=== PATIENT | male | born 1940 | race Caucasian/White ===

== ENCOUNTER 2019-05-09 09:43 | Day surgery (SDC) | payer MEDICARE, OTHER, SELFPAY ==
[2019-05-07 10:45] VITALS: BMI 28.2
[2019-05-07 10:56] VITALS: BMI 28.2
--- NOTE | 2019-05-09 10:04 | XRR_ITS ---
PROCEDURE INFORMATION: Exam: XR Chest, 1 View Exam date and time: 05/09/2019 10:38 AM Age: 79 years old Clinical indication: Device placement; Other: Generator exchange; Prior surgery; Surgery date: Post-operative (0-2 days) TECHNIQUE: Imaging protocol: XR of the chest Views: 1 view. COMPARISON: CR Chest 1 [place] [id number] 03/15/2013 1:32 PM FINDINGS: Tubes, catheters and devices: AICD. Lungs: Hyperinflation and mild interstitial prominence. Pleural space: No pneumothorax or pleural effusion. Heart/Mediastinum: Cardiac silhouette upper limits of normal in size. Vasculature: Ectasia of the thoracic aorta. Bones/joints: Degenerative change and mild scoliosis. XR/XR chest 1V portable [id number] IMPRESSION: No postprocedural complication in the setting of AICD placement.
[2019-05-09 10:11] VITALS: BP 122/70; PULSE 77; RESP 18; TEMP 36.6
[2019-05-09] MEDS: sodium chloride 0.9% 1,000 ML 30 ML IV (10:17)
--- NOTE | 2019-05-09 10:24 | ANES.PREANES ---
Pre-Anesthetic Assessment Pre-Anesthetic Assessment: Height/Weight: Height 1.83 m Weight 94.347 kg Temp Pulse Resp BP 98 F 77 18 122/70 05/09/19 10:11 05/09/19 10:11 05/09/19 10:11 05/09/19 10:11 Proposed Procedure: Operation Date: 05/09/19 11:15 Proposed Procedures p Defibillator Generator Exchange(Not Applicable) - Cole Chavez MD Social: Social History: No alcohol and No tobacco Exam: Pre-Anes Outpt Exam: alert, oriented x 3, clear to auscultation bilaterally and regular rate & rhythm Pulmonary: Pulmonary: None reported CV/HEM: CV/HEM: CHF : : None reported Hepatic: Hepatic: None reported GI: GI: None reported Metabolic: Metabolic: DM Musc/skel: Musc/skel: None reported Neuropsych: Neuropsych: None reported Anesthetic Plan: ASA status: IV Anesthesia: MAC Risk of > 500 ml blood loss (7ml/kg in children): No Other Pertinent Information: \npo since midnight Meds/Allergies Current Medications: Current Medications Generic Name Dose Route Start Last Admin Trade Name Freq PRN Reason Stop Dose Admin Sodium Chloride 1,000 mls @ 30 ml s/hr 05/09/19 07:30 05/09/19 10:17 Sodium Chloride 0.9% IV 05/10/19 07:29 30 mls/hr .Q24H YOVANY Administration Data Anesthesia Cardiac Studies: No Data to Display
[2019-05-09 10:26] LABS: Glucose Point of Care 297 mg/dL (70-110)
[2019-05-09] MEDS: insulin regular-human 100 units/1 mL 5 UNIT IVP (10:49)
--- NOTE | 2019-05-09 12:36 | PM.OPSURHP ---
Providers/Chief Complaint Admitting Physician: Kathy Primary Care Provider: Cj Osorio DO Chief Complaint: Cardiomyopathy History of Present Illness Rubén Zaldivar is a very pleasant 79 year old male presents today for planned pacing defibrillator exchange. His current device is been present for about 10 years and has never been required to deliver a shock. This device is [employer] and was placed in [place]. We have plans to replace the generator with a [employer] device. This is been carefully discussed with Mr. Zaldivar's and his family and they are in agreement. Review of Systems General: Reports: 10 or more systems reviewed and unremarkable except in HPI and below Const: Denies: fever, chills or change in appetite Card: Reports: shortness of breath on exertion; Denies: chest pain Resp: Reports: shortness of breath (With exertion) Neuro: Denies: changes in sensation or confusion Psych: Denies: anxiety or depression Medications/Allergies Home Medications Medication Instructions Recorded Confirmed Last Taken Type amlodipine 5 mg PO DAILY 05/07/19 05/09/19 05/09/19 07:30 History atorvastatin 10 mg PO DAILY 05/07/19 05/09/19 05/08/19 History 10 digoxin 125 mcg PO DAILY 05/07/19 05/09/19 05/08/19 History 125 finasteride 5 mg PO DAILY 05/07/19 05/09/19 05/09/19 History 5 mg gabapentin 400 mg PO DAILY 05/07/19 05/09/19 05/08/19 History 400 mg irbesartan 300 mg PO DAILY 05/07/19 05/09/19 05/08/19 History 300 mg levothyroxine 25 mcg PO DAILY 05/07/19 05/09/19 05/08/19 History 25 mcg metformin 500 mg PO DAILY 05/07/19 05/09/19 05/08/19 History 500 mg tamsulosin 0.4 mg PO DAILY 05/07/19 05/09/19 05/09/19 History 0.4MG Allergies Allergy/AdvReac Type Severity Reaction Status Date / Time No Known Allergies Allergy Verified 05/07/19 10:47 PFSH PFSH: Statuses (acute, chronic, etc) shown below reflect problem list status as previously entered and may not be historically accurate Medical History (Updated 05/09/19 @ 12:40 by Cole Chavez MD) Cardiomyopathy (Acute) Left bundle branch block (Acute) Surgical History (Updated 05/09/19 @ 12:40 by Cole Chavez MD) History of cardiac defibrillator placement (Acute) Social History (Updated 05/09/19 @ 12:42 by Cole Chavez MD) Smoking and tobacco status: former smoker Quit status (tobacco): has quit using tobacco Second hand smoke exposure: No Alcohol intake: never Substance/Drug Use: never Lives independently: Yes Household members: spouse Housing: House Marital status: Current occupational status: retired Current gender identity: Male Vital Signs Vitals Signs: Last Vital Signs Temp 98 F 05/09/19 10:11 Pulse 77 05/09/19 10:11 Resp 18 05/09/19 10:11 BP 122/70 05/09/19 10:11 Physical Exam Narrative: EXAM NARRATIVE: Very pleasant 78-year-old gentleman with a [employer] defibrillator in place at end of service. Patient presents today for planned defibrillator generator exchange. HENMT: COMMON NORMALS: normocephalic Neck/C-Spine: COMMON NORMALS: no lymphadenopathy and no carotid bruits Chest: COMMONS NORMALS: palpation of chest normal Resp: COMMON NORMALS: normal respiratory effort and no retractions EFFORT & INSPECTION: No respiratory distress AUSCULTATION: clear to auscultation bilaterally Cardio: COMMON NORMALS: regular rate, regular rhythm and S1 normal heart sound RATE: regular rate Extremity: COMMON NORMALS: normal to inspection, full ROM and no pedal edema GENERAL: Yes normal exam except as noted Neuro: COMMON NORMALS: oriented x3, moves all extremities, no focal motor deficits and no sensory deficits noted SENSORIUM/ORIENTATION: Yes alert, Yes oriented to person and Yes oriented to place Psych: COMMON NORMALS: mental status grossly normal, cooperative, affect normal and speech normal APPEARANCE: Yes grossly normal and Yes well kempt A&P Assessment and plan (1) History of cardiac defibrillator placement: [employer] pacing defibrillator generator end of service. We will plan for defibrillator generator exchange with a [employer] device. This was carefully discussed with Mr. Zaldivar and his family. They are in agreement. Details and risks of the procedure were carefully and frankly discussed. Risks reviewed include the possibility of , stroke, heart attack, major bleeding, infection, pneumonia, pneumothorax requiring chest tube, injury to the leads requiring replacement or revision, organ failure, failure to benefit, prolonged hospital stay, pain after the procedure, need for further procedures, inability to complete the procedure, and possible need for long-term followup. All questions were answered. Appropriate consents have been provided for review and signature. Status: Acute Code(s): Z95.810 - Presence of automatic (implantable) cardiac defibrillator Coding Level of Care Code Acute Personnel Technician for [facility] Fwd Diagnoses History of cardiac defibrillator placement Z95.810
[2019-05-09 12:57] LABS: Glucose Point of Care 212 mg/dL (70-110)
[2019-05-09] MEDS: ceFAZolin 1,000 mg SDV 1000 MG IRRIGATION (13:19)
[2019-05-09] MEDS: lidocaine 1% INJ 20 mL INJECTION (13:19)
--- NOTE | 2019-05-09 14:23 | P.OP_ITS ---
Operative Report Post-Operative Note: Date of procedure: 05/09/19 Preop Diagnosis: Defibrillator generator at end of service Post-op diagnosis: same Procedure Done: AICD generator exchange Implants: AICD generator: [employer] Model number [id number] Serial number [id number] Specimens removed/disposition: Given to [employer] representative phlebotomy services Surgeon: Cole Chavez Anesthesia: MAC (10 cc 1% lidocaine infiltrated locally) Estimated blood loss (mL): 10 IV fluids (mL): 350 Complications: None Condition: stable Disposition: same day Operative Report: Brief History: Pleasant 79-year-old gentleman with a [employer] defibrillator generator at end of service. Guest Services Director requested exchange. We will plan to exchange for a [employer] device. Rationale was carefully discussed with patient and family. They are in agreement. Details the risk of surgery were carefully discussed. Procedure: Patient was appropriately positioned and sterilely prepped and draped. IV consicious sedat ion was given with anesthesia monitoring. 1% lidocaine was infiltrated through the prior insertion incision site. # 15 scalpel blade was used to incise the skin down to subcutaneous layer. Subsequently, using sharp and blunt dissection the pseudocapsule to the old generator was reached and opened with a scalpel blade. This area was then enhanced utilizing Metzenbaum scissors with care taken not to injure the pacing leads. Once the pocket was adequate opened, hemostats were utilized to deliver the old generator. Set screws were released and the leads were removed and inserted properly into the new generator with set screws then secured. The old generator was removed from the field. The incision was irrigated with antibiotic solution. Hemostasis was confirmed. The new generator was placed back into the old subcutaneous pocket. The wound was then closed in 2 layers of 3-0 Vicryl suture. Skin was closed in a subcuticular manner with 4-0 undyed Vicryl suture. A 2 layer pressure dressing was then applied. The entire system was interrogated and appropriate parameters obtained. Patient tolerated procedure well and was taken to the recovery room in stable condition. I did auto club travel counselor with the family at the completion of the procedure. Coding Level of Care Code Acute Drying Tunnel Operator for [facility] Guardado
[2019-05-09 14:26] VITALS: BP 112/54; O2SAT 93
[2019-05-09 14:45] LABS: Basophils # 0.1 10^3/uL (0.0-0.1); Basophils % 0.6 %; Eosinophils # 0.4 10^3/uL (0.0-0.8); Hematocrit 39.6 % (42.0-52.0); Lymphocytes # 1.6 10^3/uL (0.8-4.8); Mean Corpuscular HGB Conc 32.8 g/dL (30.0-36.0); Mean Corpuscular Hemoglobin 31.6 pg (28.0-34.0); Mean Corpuscular Volume 96.1 fL (80-94); Mean Platelet Volume 11.8 fL (7.4-10.4); Monocytes # 0.9 10^3/uL (0.2-0.9); Monocytes % 9.2 %; Neutrophils # 6.9 10^3/uL (1.8-7.7); Neutrophils % 69.8 %; Nucleated Red Blood Cells % 0 %; Platelet Count 296 10^3/cmm (130-400); Red Blood Count 4.12 10^6/uL (4.1-5.3); Red Cell Distribution Width 12.6 % (12.1-15.1); White Blood Count 9.9 10^3/uL (4.0-10.0)
[2019-05-09 14:54] LABS: INR 0.96 (0.8-1.2)
[2019-05-09 15:22] LABS: Add Urine Microscopic? YES; Bilirubin Urine Neg (NEGATIVE); Blood Urine Neg (Negative); Glucose Urine UA 4+ (Normal); Ketones Urine Negative (Negative); Nitrate Urine Negative (Negative); Protein Urine Trace (Negative); Specific Gravity, Urine 1.015 (1.005-1.030); Urine Appearance Clear (CLEAR); Urine Color Yellow (Yellow); Urobilinogen Urine 1 mg/dL (Negative)
[2019-05-09 15:52] LABS: Add Urine Culture? No; Bacteria Urine TRACE; Mucus Urine TRACE; RBC Urine 0-4 /hpf (0-2); Squamous Epithelial Cell Urine 0-4 (0-5)
[2019-05-09 23:25] LABS: Anion Gap 16.6 (5-19); Blood Urea Nitrogen 18 mg/dL (8-23); Calcium 9.6 mg/Dl (8.8-10.2); Carbon Dioxide 26 mmol/L (22-29); Chloride 97 mmol/L (98-107); Glucose 284 mg/dL (74-106); Potassium 4.6 mmol/L (3.5-5.1); Sodium 135 mmol/L (136-145)
[2019-05-10 08:51] LABS: Leukocyte Esterase Urine Negative (Negative)
== END 2019-05-09 15:10 | disposition home or self-care (01) ==
PROVIDERS: Family Provider Internal Medicine; PCP Internal Medicine; Visit Provider Thoracic Surgery (Cardiothoracic Vascular Surgery)
PROC: 0JPT0PZ Removal of Cardiac Rhythm Related Device from Trunk Subcutaneous Tissue and Fascia, Open Approach (ICD-10-PCS; CPT 33263; principal; 2019-05-09 11:15)
DX: Z45.02 Encounter for adjustment and management of automatic implantable cardiac defibrillator (principal); E11.9 Type 2 diabetes mellitus without complications; Z79.84 Long term (current) use of oral hypoglycemic drugs; Z87.891 Personal history of nicotine dependence; I50.9 Heart failure, unspecified
CPT/HCPCS: 33263; 36415; 36416; 71045; 80048; 81003; 82962; 85025; 85610; C1895; J0690; J1815; J2001; J2704; J3010; J7030

== ENCOUNTER → 2019-10-18 08:02 | Outpatient (BNVA) | payer MEDICARE, OTHER, SELFPAY | PROVIDERS: Family Provider Internal Medicine; PCP Internal Medicine; Visit Provider Urology | DX: R97.20 Elevated prostate specific antigen [PSA] (principal); N40.1 Benign prostatic hyperplasia with lower urinary tract symptoms | CPT/HCPCS: 81001; 84153 ==

== ENCOUNTER → 2020-01-23 12:34 | Outpatient (BNVA) | payer MEDICARE, OTHER, SELFPAY | PROVIDERS: Family Provider Internal Medicine; PCP Internal Medicine; Referring Provider Dermatology; Visit Provider Dermatology | DX: Z85.828 Personal history of other malignant neoplasm of skin (principal); Z12.83 Encounter for screening for malignant neoplasm of skin; L57.0 Actinic keratosis; L82.1 Other seborrheic keratosis; L82.0 Inflamed seborrheic keratosis; D18.01 Hemangioma of skin and subcutaneous tissue | CPT/HCPCS: 17000; 17003; 17110; 99203 ==

== ENCOUNTER → 2020-01-30 16:15 | Outpatient (BNVA) | payer MEDICARE, OTHER, SELFPAY | PROVIDERS: Family Provider Internal Medicine; PCP Internal Medicine; Visit Provider Nurse Practitioner Family | DX: N40.0 Benign prostatic hyperplasia without lower urinary tract symptoms (principal) | CPT/HCPCS: 80053; 81001; 87077; 87086; 87186 ==

== ENCOUNTER → 2020-02-13 08:51 | Outpatient (BNVA) | payer MEDICARE, OTHER, SELFPAY | PROVIDERS: Family Provider Internal Medicine; PCP Internal Medicine; Visit Provider Urology | DX: N30.00 Acute cystitis without hematuria (principal) | CPT/HCPCS: 80053; 81001 ==

== ENCOUNTER → 2020-03-20 09:59 | Outpatient (BNVA) | payer MEDICARE, OTHER, SELFPAY | PROVIDERS: Family Provider Internal Medicine; PCP Internal Medicine; Visit Provider Urology | DX: N30.00 Acute cystitis without hematuria (principal); N40.1 Benign prostatic hyperplasia with lower urinary tract symptoms; R97.20 Elevated prostate specific antigen [PSA] | CPT/HCPCS: 81003 ==

== ENCOUNTER 2020-06-17 10:05 | Emergency (ER) | payer MEDICARE, OTHER, SELFPAY ==
[2020-06-17 10:11] VITALS: BP 172/95; PULSE 84; RESP 16; TEMP 36.5; O2SAT 96; BMI 27.6
--- NOTE | 2020-06-17 10:31 | XRR_ITS ---
PROCEDURE INFORMATION: Exam: XR Left Ribs with PA Chest, 3 Views Exam date and time: 06/17/2020 10:33 AM Age: 80 years old Clinical indication: Injury or trauma; Fall; Rib area, left side; Blunt trauma; Prior surgery TECHNIQUE: Imaging protocol: XR Left ribs 3 views with PA chest. COMPARISON: CR XR chest 1V portable [id number] 05/09/2019 10:27 AM FINDINGS: Tubes, catheters and devices: A permanent pacemaker appears intact. Lungs: Unremarkable. No consolidation. Pleural spaces: Unremarkable. No pleural effusion. No pneumothorax. Heart/Mediastinum: Unremarkable. No cardiomegaly. Bones/joints: No rib fractures are seen. XR/XR ribs LT mn 3V w CXR1V [id number] IMPRESSION: Normal.
--- NOTE | 2020-06-17 10:31 | CTR_ITS ---
PROCEDURE INFORMATION: Exam: CT Head Without Contrast Exam date and time: 06/17/2020 10:33 AM Age: 80 years old Clinical indication: Injury or trauma; Fall; Blunt trauma (contusions or hematomas); With loss of consciousness; Loss of consciousness for 30 minutes or less; Additional info: +loc, fall TECHNIQUE: Imaging protocol: Computed tomography of the head without contrast. Radiation optimization: All CT scans at this facility use at least one of these dose optimization techniques: automated exposure control; mA and/or kV adjustment per patient size (includes targeted exams where dose is matched to clinical indication); or iterative reconstruction. COMPARISON: No relevant prior studies available. RADIATION DOSE METRICS: Total DLP (mGy-cm): 1165.82 FINDINGS: Brain: There is moderate generalized chronic atrophy. There is patchy decreased white matter density indicating chronic small vessel white matter ischemia. Multiple small lacunar infarcts are seen along the basal ganglia. No intracranial hemorrhage, edema or other acute abnormalities are seen in the brain. There is no mass effect or midline shift. Cerebral ventricles: The ventricles are prominent consistent with chronic atrophy. Bones/joints: Unremarkable. No acute fracture. Paranasal sinuses: Visualized sinuses are unremarkable. No fluid levels. Mastoid air cells: Visualized mastoid air cells are well aerated. Soft tissues: Unremarkable. CT/CT head wo con* [id number] IMPRESSION: No acute intracranial abnormality. Radiation Dose CTDIVOL = (mGy): DLP = 1165.82 (mGy-cm)
--- NOTE | 2020-06-17 10:32 | W.ED.FALL ---
HPI - Fall General: Chief Complaint: Fall Stated Complaint: fall Time Seen by Provider: 06/17/20 10:18 History of Present Illness: HPI Narrative: Patient fell on ice yesterday. Striking left front aspect of scalp. said he was probably loss of consciousness for 15 minutes would be her estimation. Patient complains about left rib pain with palpation and deep breath. Sternum somewhat tender. Patient said he has felt fine since then besides rib pain is not having nausea and vomiting any balance problems any vision changes denies any other injuries elsewhere. Blood sugars in good control takes a baby aspirin a day complaint: fall Onset (ago): day(s) Fall from: standing Fall witnessed: yes, by family Place fall occurred: home Loss of consciousness: Yes Length of LOC: minutes(s) ( estimates 15) Prolonged down time: no Symptoms prior to fall: none Context: tripped/slipped (Fell on ice) Location of injury: head and chest Severity: mild Severity scale (1-10): 2 Quality: aching Associated symptoms-after fall: Reports no associated symptoms; Denies abdominal pain, chest pain, confusion, difficulty walking, headache(s) or vertigo Review of Systems Narrative: Patient fell on ice yesterday striking left side of face forehead. Injuring left shoulder and left rib sternal area patient was reported to have a loss of consciousness of 15 minutes as per patient does not remember event. Const: Denies: fever(s), chills or body aches Eyes: Denies: change in vision or blurry vision ENMT: Denies: throat pain or nasal congestion Card: Denies: chest pain or dyspnea on exertion Resp: Denies: dyspnea, productive cough or non-productive cough GI: Denies: abdominal pain, nausea or vomiting : Denies: difficulty urinating Musc: Reports: other (Patient planes of left shoulder pain, left sided rib pain and right-sided s); Denies: extremity pain Skin/Breast: Denies: rash Neuro: Denies: headache(s), numbness in extremities, weakness in extremities, sensory changes, lack of coordination, difficulty walking, dizziness, vertigo or confusion Psych: Denies: anxiety or depression Gregorio/Lymph: Denies: easy bruising PFS ED PFSH: Medical History (Updated 06/17/20 @ 11:22 by Artem Yelena, PARACHUTIST/COMBATANT DIVER QUALIFIED) BPH loc w urin obs/LUTS Cardiomyopathy Cataract, bilateral COPD (chronic obstructive pulmonary disease) Diabetes Elevated PSA History of nonmelanoma skin cancer Hyperlipidemia Left bundle branch block Neuropathy Surgical History History of adenoidectomy History of back surgery History of cardiac defibrillator placement Hx of tonsillectomy Social History Smoking and tobacco status: former smoker Quit status (tobacco): has quit using tobacco Second hand smoke exposure: No Alcohol intake: never Lives independently: Yes Household members: spouse Housing: House Marital status: Current occupational status: retired Current gender identity: Male Physical Exam Const: COMMON NORMALS: no acute distress, average body habitus and patient oriented x3 HENMT: COMMON NORMALS: normocephalic HEAD & SCALP: normal to inspection and normocephalic FACE & SINUS: normal facial exam Eye: COMMON NORMALS: conjunctivae normal GENERAL EYE: appearance normal, both eyes and all related structures CONJUNCTIVA: Yes conjunctivae normal PUPIL: Yes pupil size - right Right pupil size (mm): 2 and Yes pupil size - left Left pupil size (mm): 2 Neck/C-Spine: COMMON NORMALS: full ROM, supple, no meningeal signs and no JVD GENERAL: Yes normal visual inspection CERVICAL SPINE: Yes cervical ROM normal, No Cervical spine tenderness and No Paracervical muscle tenderness Chest: COMMONS NORMALS: normal inspection of the chest CHEST: No abnormal inspection of the chest and Yes localized rib tenderness with anteroposterior compression (Right-sided sternum and middle left anterior chest area no swelling) Resp: COMMON NORMALS: normal respiratory effort and clear to auscultation bilaterally AUSCULTATION: clear to auscultation bilaterally Cardio: COMMON NORMALS: no JVD, regular rate and regular rhythm RATE: regular rate RHYTHM: regular rhythm GI: COMMON NORMALS: Normal to inspection, nondistended, normoactive bowel sounds present Extremity: COMMON NORMALS: normal to inspection and full ROM Neuro: COMMON NORMALS: patient oriented x3, CN's II-XII intact bilaterally, moves all extremities, no focal motor deficits and no sensory deficits noted MENINGEAL SIGNS: Yes no meningeal signs SPEECH: speech normal GAIT: Yes Normal gait present MOTOR EXAM: 5/5 motor strength present throughout Psych: COMMON NORMALS: mental status grossly normal Skin: NARRATIVE SKIN EXAM: Has abrasion to the left forehead left side of face no swelling Course Vital Signs: Vital signs: Vital Signs Temperature 97.7 F 06/17/20 10:11 Pulse Rate 84 06/17/20 10:11 Respiratory Rate 16 06/17/20 10:11 Blood Pressure 172/95 06/17/20 10:11 Pulse Oximetry 96 06/17/20 10:11 MDM - Fall MDM Narrative: Medical decision making narrative: Patient appears very well now. Converses easily neuro status is intact without any deficiencies. Discussed injuries with the patient and . Patient to follow-up as directed. Radiology studies were negative. Patient even though concussion symptom free with positive loss of consciousness lends me to diagnosis of concussion. Patient is stable and able go home Discharge Plan Discharge Patient Disposition: Home Clinical Impression: Fall Qualifiers: Encounter type: initial encounter Qualified Code(s): W19.XXXA - Unspecified fall, initial encounter Concussion with loss of consciousness Qualifiers: Encounter type: initial encounter Qualified Code(s): S06.0X9A - Concussion with loss of consciousness of unspecified duration, initial encounter Condition: Stable Prescriptions: No Action digoxin 125 mcg (0.125 mg) tablet 125 mcg PO DAILY RF: 0 gabapentin 400 mg capsule 400 mg PO DAILY RF: 0 irbesartan 300 mg tablet 300 mg PO DAILY RF: 0 levothyroxine 25 mcg capsule 25 mcg PO DAILY RF: 0 tamsulosin 0.4 mg capsule 0.4 mg PO DAILY RF: 0 aspirin [Adult Aspirin Regimen] 81 mg tablet,delayed release (DR/EC) 81 mg PO DAILY RF: 0 metformin 500 mg tablet 500 mg PO BID RF: 0 sulfamethoxazole-trimethoprim 800-160 mg tablet 1 tab PO BID Qty: 60 RF: 0 finasteride 5 mg tablet See Rx Instructions .ROUTE .COMPLEX Qty: 90 RF: 3 Discharge Orders: Discharge ED (Routine); Ordered 06/17/20 Ordered By: Artem Kirk Referrals: Cj Osorio DO [Primary Care Provider] - Discharge Diet: Usual diet Discharge Activity: Increase activity as tolerated Patient Instructions: Concussion (ED), Contusion in Adults (ED) Activity Restrictions/Additional Instructions: Follow-up with primary care provider this week for reexamination. Follow instructions on concussion instructions received from the ER. Return if worsening symptoms. Coding Level of Care Code ED Cocoa Milling Machine Operator for Anthony Fwd Exam Comprehensive
--- NOTE | 2020-06-17 10:34 | XRR_ITS ---
PROCEDURE INFORMATION: Exam: XR Left Shoulder Exam date and time: 06/17/2020 10:54 AM Age: 80 years old Clinical indication: Injury or trauma; Fall; Blunt trauma (contusions or hematomas); Shoulder; Left TECHNIQUE: Imaging protocol: XR Left shoulder. Views: 2 or more views. COMPARISON: No relevant prior studies available. FINDINGS: Bones/joints: Normal. Soft tissues: Normal. XR/XR shoulder LT min 2V* [id number] IMPRESSION: No acute findings.
[2020-06-17 11:41] VITALS: BP 168/95; PULSE 76; RESP 18; O2SAT 95
== END 2020-06-17 11:43 | disposition home or self-care (01) ==
PROVIDERS: Emergency Provider Nurse Practitioner Family; PCP Internal Medicine
DX: S06.0X9A Concussion with loss of consciousness of unspecified duration, initial encounter (principal); Z79.82 Long term (current) use of aspirin; Z79.84 Long term (current) use of oral hypoglycemic drugs; J44.9 Chronic obstructive pulmonary disease, unspecified; E11.40 Type 2 diabetes mellitus with diabetic neuropathy, unspecified; E78.5 Hyperlipidemia, unspecified; Z87.891 Personal history of nicotine dependence; W00.9XXA Unspecified fall due to ice and snow, initial encounter
CPT/HCPCS: 70450; 71101; 73030; 99283

== ENCOUNTER → 2020-10-17 07:59 | Outpatient (BNVA) | payer MEDICARE, OTHER, SELFPAY | PROVIDERS: PCP Internal Medicine; Visit Provider Urology | DX: N30.00 Acute cystitis without hematuria (principal); N40.1 Benign prostatic hyperplasia with lower urinary tract symptoms | CPT/HCPCS: 81003 ==

== ENCOUNTER → 2021-07-05 08:57 | Outpatient (BNVA) | payer MEDICARE, OTHER, SELFPAY | PROVIDERS: PCP Internal Medicine; Visit Provider Internal Medicine | DX: Z95.810 Presence of automatic (implantable) cardiac defibrillator (principal) | CPT/HCPCS: 93284 ==

== ENCOUNTER → 2022-12-02 15:43 | Outpatient (BNVA) | payer MEDICARE, OTHER, SELFPAY | PROVIDERS: PCP Internal Medicine; Visit Provider Internal Medicine | DX: Z45.02 Encounter for adjustment and management of automatic implantable cardiac defibrillator (principal) | CPT/HCPCS: 93296 ==

== ENCOUNTER → 2022-12-16 09:46 | Outpatient (BNVA) | payer MEDICARE, OTHER, SELFPAY | PROVIDERS: PCP Internal Medicine; Visit Provider Podiatrist Foot & Ankle Surgery | DX: M20.41 Other hammer toe(s) (acquired), right foot (principal); M20.42 Other hammer toe(s) (acquired), left foot; L60.8 Other nail disorders; I73.9 Peripheral vascular disease, unspecified; G62.9 Polyneuropathy, unspecified; L60.3 Nail dystrophy; E11.42 Type 2 diabetes mellitus with diabetic polyneuropathy; Z79.84 Long term (current) use of oral hypoglycemic drugs | CPT/HCPCS: 11721; 99203 ==

== ENCOUNTER → 2023-01-12 11:28 | Outpatient (BNVA) | payer OTHER, SELFPAY | PROVIDERS: PCP Internal Medicine; Visit Provider Internal Medicine Cardiovascular Disease | DX: I10 Essential (primary) hypertension (principal); Z85.828 Personal history of other malignant neoplasm of skin; I44.7 Left bundle-branch block, unspecified; I42.9 Cardiomyopathy, unspecified; E78.5 Hyperlipidemia, unspecified; J44.9 Chronic obstructive pulmonary disease, unspecified; E11.9 Type 2 diabetes mellitus without complications; Z95.810 Presence of automatic (implantable) cardiac defibrillator; Z87.891 Personal history of nicotine dependence; Z79.84 Long term (current) use of oral hypoglycemic drugs | CPT/HCPCS: 99213; 99214; 99215 ==

== ENCOUNTER → 2023-01-28 08:52 | Outpatient (BNVA) | payer OTHER, SELFPAY | PROVIDERS: PCP Internal Medicine; Visit Provider Nurse Practitioner Family | DX: L57.8 Other skin changes due to chronic exposure to nonionizing radiation (principal); L81.4 Other melanin hyperpigmentation; D22.5 Melanocytic nevi of trunk; L72.0 Epidermal cyst; Z08 Encounter for follow-up examination after completed treatment for malignant neoplasm; Z85.828 Personal history of other malignant neoplasm of skin; D48.5 Neoplasm of uncertain behavior of skin; L57.0 Actinic keratosis | CPT/HCPCS: 11102; 17000; 99213 ==

== ENCOUNTER → 2023-02-04 07:53 | Outpatient (BNVA) | payer MEDICARE, OTHER, SELFPAY | PROVIDERS: PCP Internal Medicine; Visit Provider Dermatology | DX: L57.0 Actinic keratosis (principal) | CPT/HCPCS: 96567 ==

== ENCOUNTER → 2023-02-16 08:23 | Outpatient (BNVA) | payer MEDICARE, OTHER, SELFPAY | PROVIDERS: PCP Internal Medicine; Visit Provider Dermatology | DX: C44.629 Squamous cell carcinoma of skin of left upper limb, including shoulder (principal) | CPT/HCPCS: 13132; 17311 ==

== ENCOUNTER → 2023-03-17 08:22 | Outpatient (BNVA) | payer MEDICARE, OTHER, SELFPAY | PROVIDERS: PCP Internal Medicine; Visit Provider Podiatrist Foot & Ankle Surgery | DX: M20.41 Other hammer toe(s) (acquired), right foot (principal); M20.42 Other hammer toe(s) (acquired), left foot; L60.8 Other nail disorders; I73.9 Peripheral vascular disease, unspecified; G62.9 Polyneuropathy, unspecified; E11.42 Type 2 diabetes mellitus with diabetic polyneuropathy; L60.3 Nail dystrophy | CPT/HCPCS: 11721 ==

== ENCOUNTER → 2023-05-13 12:34 | Outpatient (BNVA) | payer MEDICARE, OTHER, SELFPAY | PROVIDERS: PCP Internal Medicine; Visit Provider Internal Medicine Cardiovascular Disease | DX: Z45.02 Encounter for adjustment and management of automatic implantable cardiac defibrillator (principal) | CPT/HCPCS: 93296 ==

== ENCOUNTER → 2023-07-07 09:55 | Outpatient (BNVA) | payer MEDICARE, OTHER, SELFPAY | PROVIDERS: PCP Internal Medicine; Visit Provider Podiatrist Foot & Ankle Surgery | DX: M20.41 Other hammer toe(s) (acquired), right foot (principal); M20.42 Other hammer toe(s) (acquired), left foot; L60.8 Other nail disorders; I73.9 Peripheral vascular disease, unspecified; G62.9 Polyneuropathy, unspecified; L60.3 Nail dystrophy; E11.42 Type 2 diabetes mellitus with diabetic polyneuropathy | CPT/HCPCS: 11721 ==

== ENCOUNTER → 2023-07-29 09:57 | Outpatient (BNVA) | payer MEDICARE, OTHER, SELFPAY | PROVIDERS: PCP Internal Medicine; Visit Provider Nurse Practitioner Family | DX: R20.2 Paresthesia of skin (principal); L57.8 Other skin changes due to chronic exposure to nonionizing radiation; L81.4 Other melanin hyperpigmentation; D22.5 Melanocytic nevi of trunk; Z85.828 Personal history of other malignant neoplasm of skin | CPT/HCPCS: 99214 ==

== ENCOUNTER → 2024-01-28 08:31 | Outpatient (BNVA) | payer MEDICARE, OTHER, SELFPAY | PROVIDERS: PCP Internal Medicine; Visit Provider Nurse Practitioner Family | DX: R20.2 Paresthesia of skin (principal); L57.8 Other skin changes due to chronic exposure to nonionizing radiation; L81.4 Other melanin hyperpigmentation; D22.5 Melanocytic nevi of trunk; L57.0 Actinic keratosis; L82.1 Other seborrheic keratosis; Z85.828 Personal history of other malignant neoplasm of skin | CPT/HCPCS: 17004; 99214 ==

== ENCOUNTER → 2024-02-10 10:28 | Outpatient (BNVA) | payer MEDICARE, OTHER, SELFPAY | PROVIDERS: PCP Internal Medicine; Visit Provider Internal Medicine Cardiovascular Disease | DX: Z45.02 Encounter for adjustment and management of automatic implantable cardiac defibrillator (principal) | CPT/HCPCS: 93296 ==

== ENCOUNTER 2024-03-08 06:51 | Emergency (ER) | payer MEDICARE, OTHER, SELFPAY ==
--- NOTE | 2024-03-08 06:56 | CTR_ITS ---
PROCEDURE INFORMATION: Exam: CT Lumbar Spine Without Contrast Exam date and time: 03/08/2024 8:27 AM Age: 84 years old Clinical indication: Pain; Other: Left leg; Additional info: Loss functional left leg TECHNIQUE: Imaging protocol: Computed tomography of the lumbar spine without contrast. Radiation optimization: All CT scans at this facility use at least one of these dose optimization techniques: automated exposure control; mA and/or kV adjustment per patient size (includes targeted exams where dose is matched to clinical indication); or iterative reconstruction. COMPARISON: No relevant prior studies available. RADIATION DOSE METRICS: Total DLP (mGy-cm): 760.61 FINDINGS: Bones/joints: Examination of the coronal reformatted images demonstrates a very slight scoliotic curvature convex left. Examination of the sagittal reformatted images demonstrates normal alignment. No subluxations are identified. No fractures are noted. No blastic or lytic bony lesions are identified. There is disc space narrowing at L4-L5. There are degenerative changes involving the facets at multiple levels. No fractures are noted on the axial images. T12-L1: There is mild disc bulging. There are degenerative changes involving the facets. There is mild resultant canal narrowing. The neural foramina are patent. L1-L2: There is mild disc bulging. There are mild degenerative changes involving the facets. There is mild resultant canal narrowing with minimal left foraminal narrowing. The right neural foramina is widely patent. L2-L3: There is mineralized disc bulging. There are mild degenerative changes involving the facets. There is [id number] resultant canal narrowing. There is mild bilateral foraminal narrowing. L3-L4: There is mineralized disc bulging. There are degenerative changes involving the facets. There is mild resultant canal narrowing with mild bilateral foraminal narrowing. L4-L5: There is diffuse disc bulging. There are degenerative changes involving the facets. There is [id number] resultant canal narrowing with mild right foraminal narrowing and minimal left foraminal narrowing. L5-S1: There is mineralized disc bulging. There are degenerative changes involving the facets. There is mild resultant canal narrowing with moderate bilateral foraminal narrowing worse on the right. Soft tissues: There is partially visualized dilatation involving the aorta which measures at least 4.[address]/CT lumbar spine wo con* [id number] IMPRESSION: 1. Multilevel degenerative disc and facet change. Particulars at each level are given above. 2. Partially visualized aneurysmal dilatation of the aorta which measures at least 4.8 cm in size.
[2024-03-08 06:57] VITALS: BP 135/80; PULSE 82; RESP 18; TEMP 36.4; O2SAT 94; BMI 27.6
--- NOTE | 2024-03-08 06:58 | ED_ITS ---
HPI - General Adult 2 General: Chief complaint: General Medical Stated complaint: can not move left leg Time Seen by Provider: 03/08/24 06:54 History of Present Illness: 84-year-old male presents emergency room complaining of inability to move his left leg. He said pain in his leg for the last several days progressively worsening. It hurts to move he refers most of the pain to the groin crease. No recent heavy lifting or falls or trauma precipitating this. He states that hurts to move it. He does have some swelling in the leg as well. He reports a history of peripheral neuropathy. Remote history of back surgery. No difficulty with bowel or bladder function. Denies fever sweats or chills. Associated symptoms: Deny chest pain, dyspnea or rash Related Data Home Medications Medication Instructions Recorded Confirmed digoxin 125 mcg (0.125 mg) tablet 125 mcg PO DAILY 05/17/19 03/08/24 gabapentin 400 mg capsule 400 mg PO DAILY 05/17/19 03/08/24 levothyroxine 25 mcg capsule 25 mcg PO DAILY 05/17/19 03/08/24 tamsulosin 0.4 mg capsule 0.4 mg PO DAILY 05/17/19 03/08/24 aspirin 81 mg tablet,delayed 81 mg PO DAILY 01/23/20 03/08/24 release (Adult Aspirin Regimen) vitamin B complex (B 1 tab PO DAILY 10/17/20 03/08/24 Complex-Vitamin B12 tablet) irbesartan 300 mg tablet 150 mg PO DAILY 11/07/21 03/08/24 empagliflozin 25 mg tablet 25 mg PO DAILY 03/08/24 03/08/24 (Jardiance) finasteride 5 mg tablet 5 mg PO DAILY 03/08/24 03/08/24 Previous Rx's Medication Instructions Recorded atorvastatin 20 mg tablet 20 mg PO DAILY #90 tabs 03/08/24 metoprolol succinate 25 mg 12.5 mg (1/2 x 25 mg) PO DAILY #15 03/08/24 tablet,extended release 24 hr tabs (Toprol XL) Allergies Allergy/AdvReac Type Severity Reaction Status Date / Time No Known Allergies Allergy Verified 03/08/24 15:32 Review of Systems 2 Const: Denies: fever(s) or chills Card: Denies: chest pain Resp: Denies: dyspnea GI: Denies: abdominal pain : Denies: dysuria, urinary frequency or urinary urgency Musc: Denies: neck pain or back pain Skin/Breast: Denies: rash PFSH ED 2 PFSH: Medical History Severe hearing loss Hypothyroidism 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 Cataract, bilateral Elevated PSA BPH loc w urin obs/LUTS Hyperlipidemia COPD (chronic obstructive pulmonary disease) Neuropathy Diabetes Cardiomyopathy Left bundle branch block Surgical History History of back surgery History of adenoidectomy Hx of tonsillectomy History of cardiac defibrillator placement Social History Smoking and tobacco/nicotine status: former use of tobacco/nicotine Quit status (tobacco/nicotine): has quit using Second hand smoke exposure: No Alcohol intake: never Substance/Drug Use: never Lives independently: Yes Household members: spouse Housing: House Marital status: Current occupational status: retired Current gender identity: Male Physical Exam 2 Const: COMMON NORMALS: no acute distress GENERAL APPEARANCE: cooperative and comfortable ORIENTATION/CONSCIOUSNESS: Yes awake, Yes oriented to person, Yes oriented to place and Yes oriented to time HENMT: COMMON NORMALS: normocephalic, atraumatic and hearing grossly normal bilaterally HEAD & SCALP: normocephalic and atraumatic Resp: COMMON NORMALS: normal respiratory effort, No retractions, No use of accessory muscles and clear to auscultation bilaterally AUSCULTATION: clear to auscultation bilaterally Cardio: COMMON NORMALS: regular rate, regular rhythm and No murmurs present (Cardio) RATE: regular rate RHYTHM: regular rhythm GI: COMMON NORMALS: Soft to palpation and No hepatosplenomegaly present A USCULTATION: Yes normoactive bowel sounds PALPATION: Yes Soft to palpation, No Tenderness to palpation present (GI), No Guarding due to palpation present (GI) and Yes No hepatosplenomegaly present Extremity: COMMON NORMALS: normal to inspection, capillary refill normal, no clubbing, cyanosis or edema and no pedal edema NARRATIVE EXTREMITY EXAM: Mild discomfort palpation of the medial thigh fullness in the popliteal fossa consistent with a Bartholomew's cyst. Pain with flexion at the hip and internal/external rotation. Femoral pulses normal. No cyanosis to the left lower leg. Neuro: SENSORIUM/ORIENTATION: Yes oriented to person, Yes oriented to place and Yes oriented to time OTHER: Unable to elicit patellar tendon reflex on the left leg. Dorsum plantarflexion strength 5 out of 5 left and right. Sensation normal. Neurovascularly intact. Skin: COMMON NORMALS: no rashes or lesions noted GENERAL SKIN EXAM: no rashes or lesions noted Course 2 Vital Signs: Vital signs: Vital Signs Temperature 97.6 F 03/08/24 06:57 Pulse Rate 81 03/08/24 11:52 Respiratory Rate 18 03/08/24 06:57 Blood Pressure 122/69 03/08/24 11:52 Pulse Oximetry 97 03/08/24 11:52 Oxygen Delivery Me thod Room Air 03/08/24 10:15 MDM - General Adult Medical Decision Making Patient does have an aneurysm that has increased in size he had previously been monitoring it and then stopped at the [place]. There is no sign of dissection at this time he is able to ambulate now and he wants to leave. He is able to move the leg again. Recommend that he talk to his occupational therapist aide who is an appointment with later today about being referred to vascular surgery for further evaluation of this lesion in his leg. He also has peripheral neuropathy that may play a role in some of the pain and discomfort he has. He does have function in his leg at this point he was able to ambulate for us although it is painful when he moves it. He prefers to leave and follow-up as an outpatient at this point. Other labs and imaging reviewed as found on the chart. Lab Data 03/08/24 07:01 03/08/24 07:01 Radiology Impressions Lumbar Spine CT 03/08/24 06:56 IMPRESSION: 1. Multilevel degenerative disc and facet change. Particulars at each level are given above. 2. Partially visualized aneurysmal dilatation of the aorta which measures at least 4.[address] in [address] Head CT 03/08/24 06:59 IMPRESSION: [id number] small vessel disease. No evidence of acute intracranial process. Hip/Pelvis X-Ray 03/08/24 07:11 IMPRESSION: Moderate osteoarthritis. No acute abnormality identified. Aorta w/Runoff CTA 03/08/24 08:22 IMPRESSION: 1. Aneurysmal dilatation involving the infrarenal aorta which measures 5.6 cm in maximal dimension (previously 5.4 cm). 2. Atherosclerosis. Please see above comments for additional details in this regard. 3. Fecal stasis. 4. Moderate-sized pericardial effusion. 5. Fatty infiltration of the liver. Laboratory Results WBC 10.89 10^3/uL (3.29-11.43) 03/08/24 07:01 RBC 4.75 10^6/uL (3.85-5.65) 03/08/24 07:01 Hgb 11.90 g/dL (11.27-16.99) 03/08/24 07:01 Hct 39.2 % (37-53) 03/08/24 07:01 MCV 82.5 fl (82-101) 03/08/24 07:01 MCH 25.1 pg (27-33) L 03/08/24 07:01 MCHC 30.4 g/dL (30-55) 03/08/24 07:01 RDW 16.4 % (12.1-15.1) H 03/08/24 07:01 Plt Count 320 10^3/cmm (157-399) 03/08/24 07:01 MPV 10.5 fL (7.4-10.4) H 03/08/24 07:01 Neut % (Auto) 72.4 % 03/08/24 07:01 Lymph % (Auto) 13.3 % 03/08/24 07:01 Sharp % (Auto) 10.6 % 03/08/24 07:01 Eos % (Auto) 2.8 % 03/08/24 07:01 Baso % (Auto) 0.6 % 03/08/24 07:01 Neut # (Auto) 7.88 10^3/uL (1.8-7.7) H 03/08/24 07:01 Lymph # (Auto) 1.5 10^3/uL (0.8-4.8) 03/08/24 07:01 Sharp # (Auto) 1.2 10^3/uL (0.2-0.9) H 03/08/24 07:01 Eos # (Auto) 0.3 10^3/uL (0.0-0.8) 03/08/24 07:01 Baso # (Auto) 0.1 10^3/uL (0.0-0.1) 03/08/24 07:01 Nucleated RBC % (auto) 0 % 03/08/24 07:01 Nucleated RBCs # 0.0 /100WBC 03/08/24 07:01 ESR 20 mm/hr (0-10) H 03/08/24 07:01 Sodium 136 mmol/L (136-145) 03/08/24 07:01 Potassium 4.2 mmol/L (3.5-5.1) 03/08/24 07:01 Chloride 99 mmol/L (98-107) 03/08/24 07:01 Carbon Dioxide 26 mmol/L (22-29) 03/08/24 07:01 Anion Gap 15.2 (5-19) 03/08/24 07:01 BUN 16 mg/dL (8-23) 03/08/24 07:01 Creatinine 0.9 mg/dL (0.7-1.2) 03/08/24 07:01 GFR Calculation Not Reportable 03/08/24 07:01 Glucose 148 mg/dL (65-115) H 03/08/24 07:01 Calculated Osmolality 286 mOsm/kg (285-295) 03/08/24 07:01 Calcium 8.7 mg/dL (8.5-10.5) 03/08/24 07:01 Total Bilirubin 0.6 mg/dL (0.15-1.2) 03/08/24 07:01 AST 15 U/L (0-40) 03/08/24 07:01 ALT 11 U/L (0-41) 03/08/24 07:01 Alkaline Phosphatase 103 U/L (40-130) 03/08/24 07:01 C-Reactive Protein 17.4 mg/L (0.0-4.9) H 03/08/24 07:01 Total Protein 7.7 g/dL (6.6-8.7) 03/08/24 07:01 Albumin 4.1 g/dL (3.5-5.2) 03/08/24 07:01 Globulin 3.6 g/dL (1.3-4.6) 03/08/24 07:01 All radiology interpretation(s) finalized by discharge Discharge Plan Discharge Patient Disposition: Home Clinical Impression: Abdominal aortic aneurysm, Neuropathy Condition: Stable Prescriptions: New metoprolol succinate [Toprol XL] 25 mg tablet extended release 24 hr 12.5 mg PO DAILY Qty: 15 0RF No Action vitamin B complex [B Complex-Vitamin B12] Tablet 1 tab PO DAILY digoxin 125 mcg (0.125 mg) tablet 125 mcg PO DAILY gabapentin 400 mg capsule 400 mg PO DAILY levothyroxine 25 mcg capsule 25 mcg PO DAILY tamsulosin 0.4 mg capsule 0.4 mg PO DAILY aspirin [Adult Aspirin Regimen] 81 mg tablet,delayed release (DR/EC) 81 mg PO DAILY irbesartan 300 mg tablet 150 mg PO DAILY atorvastatin 20 mg tablet 20 mg PO DAILY Qty: 90 3RF Jardiance 25 mg Tablet 25 mg PO DAILY finasteride 5 mg tablet 5 mg PO DAILY Discharge Orders: Discharge ED (Routine); Ordered 03/08/24 Ordered By: Luther Silverman Referrals: Cj Osorio DO [Primary Care Provider] - Discharge Diet: Usual diet Discharge Activity: Increase activity as tolerated Patient Instructions: Opioid Safety, Pain Management Activity Restrictions/Additional Instructions: Thank you for choosing [facility] for your healthcare needs today. It is very important that you follow up as instructed or that you return to the Emergency Department should you have concerns or if your condition changes or worsens in any way. You were seen in the emergency room with a complaint of left leg and groin pain. You do have an abdominal aortic aneurysm which has increased in size but is not currently dissecting and there is no evidence of vascular compromise at this time. He does report a history of peripheral neuropathy. Since her leg symptoms have improved and there is no sign of dissection will discharge you home I am concerned that your aneurysm is worsening. He did mention that you have an appoint with Dr. Velázquez today recommend that you discuss this with him and he can refer you as appropriate. If you have recurrence of symptoms return immediately. We did note your blood pressure was mildly elevated in the emergency room recommend that you start metoprolol 12.5 mg once daily this is also protective of your aneurysm. Is also possible that some of the symptoms are related to a nerve impingement and/or your peripheral neuropathy that you have had in the past. Please return immediately for worsening of symptoms. Coding Level of Care Code ED Compressor Operator Portable for Anthony Guardado
--- NOTE | 2024-03-08 06:59 | CTR_ITS ---
PROCEDURE INFORMATION: Exam: CT Head Without Contrast Exam date and time: 03/08/2024 8:24 AM Age: 84 years old Clinical indication: Weakness, extremity; Left; Additional info: Cannot move left leg TECHNIQUE: Imaging protocol: Computed tomography of the head without contrast. Radiation optimization: All CT scans at this facility use at least one of these dose optimization techniques: automated exposure control; mA and/or kV adjustment per patient size (includes targeted exams where dose is matched to clinical indication); or iterative reconstruction. COMPARISON: CT head wo con* [id number] 06/17/2020 10:55 AM RADIATION DOSE METRICS: Total DLP (mGy-cm): 306 FINDINGS: Brain: There is mild to moderate small vessel disease. There is no evidence of acute parenchymal hemorrhage, extra-axial collection, or acute infarction. There is no mass effect, midline shift, or downward herniation. Cerebral ventricles: No ventriculomegaly. Paranasal sinuses: Visualized sinuses are unremarkable. No fluid levels. Mastoid air cells: Visualized mastoid air cells are well aerated. Bones: Unremarkable. No acute fracture. Soft tissues: Unremarkable. CT/CT head wo con* [id number] IMPRESSION: [id number] small vessel disease. No evidence of acute intracranial process.
[2024-03-08 07:07] LABS: Basophils # 0.1 10^3/uL (0.0-0.1); Basophils % 0.6 %; Eosinophils # 0.3 10^3/uL (0.0-0.8); Eosinophils % 2.8 %; Hematocrit 39.2 % (37-53); Lymphocytes # 1.5 10^3/uL (0.8-4.8); Lymphocytes % 13.3 %; Mean Corpuscular HGB Conc 30.4 g/dL (30-55); Mean Corpuscular Hemoglobin 25.1 pg (27-33); Mean Corpuscular Volume 82.5 fl (82-101); Mean Platelet Volume 10.5 fL (7.4-10.4); Monocytes # 1.2 10^3/uL (0.2-0.9); Monocytes % 10.6 %; Neutrophils # 7.88 10^3/uL (1.8-7.7); Neutrophils % 72.4 %; Nucleated Red Blood Cells % 0 %; Platelet Count 320 10^3/cmm (157-399); Red Blood Count 4.75 10^6/uL (3.85-5.65); Red Cell Distribution Width 16.4 % (12.1-15.1); White Blood Count 10.89 10^3/uL (3.29-11.43)
--- NOTE | 2024-03-08 07:11 | USCV_ITS ---
Rubén Zaldivar Age: 84 Gender: M : 1940 Exam Date: 03/08/2024 07:36 Ordering Phys: Luther Silverman DO Technologist: [place]am [place] [facility] [place]ication: lt leg knee pain pop fossa PROCEDURES: Venous duplex imaging was performed in only the left lower extremity. The following venous structures were evaluated: common femoral vein, profunda vein, proximal portion of the greater saphenous vein, superficial femoral vein, and the popliteal vein. In addition, the posterior tibial and peroneal trunk were evaluated. FINDINGS: Normal 2-D Doppler and augmentation and compressibility throughout the lower extremity venous structures. Additional imaging through the proximal calf veins also reveals no thrombus. Limited evaluation of the greater saphenous vein is patent with no thrombus. There is a left lower extremity. Complex. Bartholomew's cyst noted, 6.6 x 2.2 cm.. CONCLUSIONS No DVT left lower extremity. Left popliteal fossa Bartholomew's cyst. Dr. Erika Horner DO (Electronically Signed) Final Date: 08 March 2024 11:15 S
--- NOTE | 2024-03-08 07:11 | XR_ITS ---
WS: [id number] XR hip LT 2-3V wo/w pel* [id number] REASON FOR EXAM: pain FINDINGS: No fracture or focal bone lesion. Pubic rami are intact. Mild narrowing of the superior anterior joint space with moderate narrowing of the posterior inferior joint space. Moderate subchondral sclerosis in the acetabulum posteriorly and medially and mild subc hondral sclerosis anteriorly and superiorly. Mild to moderate osteophytosis of the femoral head. XR/XR hip LT 2-3V wo/w pel* [id number] IMPRESSION: Moderate osteoarthritis. No acute abnormality identified.
[2024-03-08 07:21] LABS: Erythrocyte Sedimentation Rate 20 mm/hr (0-10)
[2024-03-08 07:30] LABS: Alanine Aminotransferase 11 U/L (0-41); Albumin Level 4.1 g/dL (3.5-5.2); Alkaline Phosphatase 103 U/L (40-130); Anion Gap 15.2 (5-19); Aspartate Amino Transferase 15 U/L (0-40); Blood Urea Nitrogen 16 mg/dL (8-23); C Reactive Protein 17.4 mg/L (0.0-4.9); Calcium 8.7 mg/dL (8.5-10.5); Carbon Dioxide 26 mmol/L (22-29); Chloride 99 mmol/L (98-107); Creatinine Clr Calc Pharmacy 69.6443; Globulin 3.6 g/dL (1.3-4.6); Glucose 148 mg/dL (65-115); Osmolality Calculated 286 mOsm/kg (285-295); Potassium 4.2 mmol/L (3.5-5.1); Sodium 136 mmol/L (136-145); Total Bilirubin 0.6 mg/dL (0.15-1.2); Total Protein 7.7 g/dL (6.6-8.7)
[2024-03-08 08:07] VITALS: BP 189/96; PULSE 66; O2SAT 93
--- NOTE | 2024-03-08 08:22 | CTR_ITS ---
PROCEDURE INFORMATION: Exam: CTA Abdominal Aorta and Bilateral Lower Extremities (Run-off) With Contrast Exam date and time: 03/08/2024 9:41 AM Age: 84 years old Clinical indication: Condition or disease; Arterial aneurysm; Without rupture; Abdominal; Additional info: Abdomiinal aorta TECHNIQUE: Imaging protocol: Computed tomographic angiography of the of the abdominal aorta, pelvis and bilateral lower extremities with contrast. 3D rendering (Not supervised by radiologist): MIP and/or 3D reconstructed images were created by the technologist. Radiation optimization: All CT scans at this facility use at least one of these dose optimization techniques: automated exposure control; mA and/or kV adjustment per patient size (includes targeted exams where dose is matched to clinical indication); or iterative reconstruction. Contrast material: OMNI 350; Contrast volume: 120 ml; Contrast route: INTRAVENOUS (IV); COMPARISON: CT lumbar spine wo con* [id number] 03/08/2024 8:27 [address] , CT abdomen and pelvis 12/02/2016 RADIATION DOSE METRICS: Total DLP (mGy-cm): 1104.94 FINDINGS: Aorta: There is aneurysmal dilatation involving the infrarenal aorta which measures 5.6 cm in maximal dimension (previously 5.4 cm). There is calcified plaque and noncalcified plaque involving the aorta. No dissection is noted. Celiac trunk and mesenteric arteries: There is mild plaque involving the origins of the celiac axis and SMA without high-grade stenosis. Renal arteries: There are single renal arteries bilaterally. There is mild plaque without high-grade stenosis. Right iliac arteries: There is mild plaque involving the right common, internal common external iliac arteries without high-grade stenosis. Right femoral/popliteal arteries: There is mild plaque involving the right common femoral, superficial femoral and popliteal arteries without high-grade stenosis. Right infrapopliteal arteries: There is patent three-vessel runoff to the right foot. Left iliac arteries: There are scattered plaque involving the left common, internal common external iliac arteries without high-grade stenosis. Left femoral/popliteal arteries: There is mild plaque involving the left common femoral, superficial femoral and popliteal arteries without high-grade stenosis. Left infrapopliteal arteries: The anterior and posterior tibial arteries are patent to the level of the foot. There is a diseased peroneal artery which appears to occlude just above the ankle. Heart: There is a moderate-sized pericardial effusion. Liver: There is diffuse fatty infiltration of the liver. The liver is otherwise normal. Gallbladder and biliary ducts: Unremarkable. No calcified stones. No ductal dilation. Pancreas: Unremarkable. No mass. No ductal dilation. Spleen: Normal. No splenomegaly. Adrenal glands: There is calcification involving the right adrenal gland. The left adrenal gland is normal. Kidneys and ureters: Normal. No mass. Stomach and bowel: No dilated loops of large or small bowel is appreciated. There are scattered colonic diverticula. No bowel wall thickening is noted. There is a moderate amount of stool within the colon. Appendix: No evidence of appendicitis. Urinary bladder: Unremarkable. No mass. Reproductive: Unremarkable as visualized. Intraperitoneal space: Unremarkable. No free air. No significant fluid collection. Lymph nodes: No lymphadenopathy. Bones/joints: There are degenerative changes involving the spine, hips, and knees. No blastic or lytic bony lesions are appreciated. Soft tissues: There is a small fat filled periumbilical hernia. There are bilateral popliteal cysts larger on the left. CT/CT angio abd aorta runof [id number] IMPRESSION: 1. Aneurysmal dilatation involving the infrarenal aorta which measures 5.6 cm in maximal dimension (previously 5.4 cm). 2. Atherosclerosis. Please see above comments for additional details in this regard. 3. Fecal stasis. 4. Moderate-sized pericardial effusion. 5. Fatty infiltration of the liver.
[2024-03-08] MEDS: iohexol 350 mg/mL 500 mL Btl (per mL) IV (09:01)
[2024-03-08] MEDS: hyDRALAzine 20 mg/mL INJ 1 mL 10 MG IVP (09:09)
[2024-03-08 10:15] VITALS: BP 136/68; PULSE 81; O2SAT 96
[2024-03-08 11:52] VITALS: BP 122/69; PULSE 81; O2SAT 97
== END 2024-03-08 11:53 | disposition home or self-care (01) ==
PROVIDERS: Emergency Provider Family Medicine; PCP Internal Medicine
DX: I71.40 Abdominal aortic aneurysm, without rupture, unspecified (principal); Z79.82 Long term (current) use of aspirin; E11.40 Type 2 diabetes mellitus with diabetic neuropathy, unspecified; J44.9 Chronic obstructive pulmonary disease, unspecified; Z95.810 Presence of automatic (implantable) cardiac defibrillator; Z87.891 Personal history of nicotine dependence
CPT/HCPCS: 70450; 72131; 73502; 75635; 80053; 85025; 85651; 86140; 93971; 96374; 99285; J0360

== ENCOUNTER → 2024-06-13 14:52 | Outpatient (BNVA) | payer OTHER, SELFPAY | PROVIDERS: PCP Internal Medicine; Visit Provider Internal Medicine Cardiovascular Disease | DX: I10 Essential (primary) hypertension (principal); Z95.810 Presence of automatic (implantable) cardiac defibrillator; I42.9 Cardiomyopathy, unspecified; I71.40 Abdominal aortic aneurysm, without rupture, unspecified; Z87.891 Personal history of nicotine dependence | CPT/HCPCS: 99214 ==

== ENCOUNTER → 2024-06-29 09:36 | Outpatient (BNVA) | payer OTHER, SELFPAY | PROVIDERS: PCP Internal Medicine; Visit Provider Internal Medicine Cardiovascular Disease | DX: Z45.02 Encounter for adjustment and management of automatic implantable cardiac defibrillator (principal) | CPT/HCPCS: 93296 ==

== ENCOUNTER → 2024-07-18 13:31 | Outpatient (BNVA) | payer MEDICARE, OTHER, SELFPAY | PROVIDERS: PCP Internal Medicine; Visit Provider Nurse Practitioner Family | DX: L57.8 Other skin changes due to chronic exposure to nonionizing radiation (principal); L81.4 Other melanin hyperpigmentation; D22.5 Melanocytic nevi of trunk; L82.1 Other seborrheic keratosis; Z08 Encounter for follow-up examination after completed treatment for malignant neoplasm; Z85.828 Personal history of other malignant neoplasm of skin; L57.0 Actinic keratosis | CPT/HCPCS: 17000; 99213 ==

== ENCOUNTER → 2024-07-26 08:16 | Outpatient (BNVA) | payer MEDICARE, OTHER, SELFPAY | PROVIDERS: PCP Internal Medicine; Visit Provider Podiatrist Foot & Ankle Surgery | DX: M20.41 Other hammer toe(s) (acquired), right foot (principal); M20.42 Other hammer toe(s) (acquired), left foot; L60.8 Other nail disorders; I73.9 Peripheral vascular disease, unspecified; G62.9 Polyneuropathy, unspecified; E11.9 Type 2 diabetes mellitus without complications; L60.3 Nail dystrophy; E11.42 Type 2 diabetes mellitus with diabetic polyneuropathy | CPT/HCPCS: 99213 ==

== ENCOUNTER 2024-09-02 08:42 | Outpatient (CLI) | payer MEDICARE, OTHER, SELFPAY ==
--- NOTE | 2024-09-02 08:45 | FL_ITS ---
WS: [id number] Barium swallow and esophagram, 09/02/2024 Clinical Data: ESOPHAGEAL DISPHAGIA Comparison: None. Fluoroscopy time: 0min [id number] # of spot films: 29 Findings: The patient swallowed the thick and thin barium, and it flowed through the hypopharynx without hesitation. No stricture, mass, polyp or erosion was seen. No aspiration or penetration occurred. The barium entered the esophagus and there was normal motility throughout. No hiatal hernia, reflux, stricture, polyp, mass, erosion or ulcer was noted. The barium passed normally into the stomach. The patient has cardiac pacemaker and defibrillator wires.. FL/FL barium swallow [id number] Impression: Normal esophagram.
== END 2024-09-02 08:43 | disposition home or self-care (01) ==
PROVIDERS: PCP Family Medicine; Visit Provider Family Medicine
DX: R13.19 Other dysphagia (principal); Z96.89 Presence of other specified functional implants
CPT/HCPCS: 74220

== ENCOUNTER → 2024-11-17 08:57 | Outpatient (BNVA) | payer MEDICARE, OTHER, SELFPAY | PROVIDERS: PCP Family Medicine; Visit Provider Internal Medicine | DX: Z45.02 Encounter for adjustment and management of automatic implantable cardiac defibrillator (principal) | CPT/HCPCS: 93296 ==

== ENCOUNTER → 2024-12-12 14:50 | Outpatient (BNVA) | payer MEDICARE, OTHER, SELFPAY | PROVIDERS: PCP Family Medicine; Visit Provider Internal Medicine Cardiovascular Disease | DX: I42.9 Cardiomyopathy, unspecified (principal); I73.9 Peripheral vascular disease, unspecified; I71.40 Abdominal aortic aneurysm, without rupture, unspecified; R60.0 Localized edema; I10 Essential (primary) hypertension | CPT/HCPCS: 99214 ==

== ENCOUNTER 2024-12-20 09:11 | Outpatient (CLI) | payer MEDICARE, OTHER, SELFPAY ==
--- NOTE | 2024-12-20 09:30 | CTR_ITS ---
PROCEDURE INFORMATION: Exam: CTA Abdominal Aorta and Bilateral Lower Extremities (Run-off) Without and With Contrast Exam date and time: 12/20/2024 9:53 AM Age: 84 years old Clinical indication: Other: Aaa, severe pad; Prior surgery; Surgery date: 1-6 months; Follow up to aaa surgery TECHNIQUE: Imaging protocol: Computed tomographic angiography of the abdominal aorta, pelvis and bilateral lower extremities without and with contrast. 3D rendering (Not supervised by radiologist): MIP and/or 3D reconstructed images were created by the technologist. Radiation optimization: All CT scans at this facility use at least one of these dose optimization techniques: automated exposure control; mA and/or kV adjustment per patient size (includes targeted exams where dose is matched to clinical indication); or iterative reconstruction. Contrast material: OMNIPAQUE 350; Contrast volume: 125 ml; Contrast route: INTRAVENOUS (IV); COMPARISON: CT angio abd aorta runof [address]4615 03/08/2024 9:41 AM RADIATION DOSE METRICS: Total DLP (mGy-cm): 2887.59 FINDINGS: Aorta: Abdominal aortic aneurysm status post aortobiiliac stent graft with periscopes into the celiac trunk, SMA, and bilateral renal arteries. There is serpiginous enhancement within the aneurysm sac likely reflecting a vessel. 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 Hernia sac measures 5.4 x 5.6 cm. Celiac trunk and mesenteric arteries: Celiac artery is stented proximally without evidence of occlusion. SMA stented proximally without evidence of occlusion. CHRIS is tortuous although appears patent. Renal arteries: Stented proximally. No evidence of occlusion. Right iliac arteries: Majority of the common iliac artery is stented without evidence of in stent occlusion. The right internal iliac artery is atherosclerotic without significant stenosis. Of the external iliac artery is atherosclerotic with mild focal stenosis proximally. Right femoral/popliteal arteries: The common femoral artery is atherosclerotic with mild stenosis. The deep femoral artery is patent. The superficial femoral artery is atherosclerotic without hemodynamically significant stenosis. The popliteal artery is atherosclerotic without hemodynamically significant stenosis. Right infrapopliteal arteries: The anterior tibial artery is patent to the level of the ankle joint and continues as the dorsalis pedis artery. TP trunk is patent. The posterior tibial artery is patent to the ankle joint and continues as the plantar artery. The peroneal artery is patent to the level of the ankle joint. Left iliac arteries: Majority of the common iliac artery is stented and appears patent. The internal iliac artery is atherosclerotic with mild stenosis. The external iliac artery is atherosclerotic without hemodynamically significant stenosis. Left femoral/popliteal arteries: The common femoral artery is atherosclerotic without hemodynamically significant stenosis. The deep femoral artery is patent. The superficial femoral artery is atherosclerotic without hemodynamically significant stenosis. The popliteal artery is atherosclerotic without hemodynamically significant stenosis. Left infrapopliteal arteries: The anterior tibial artery is patent to the level of the ankle joint and continues as the dorsalis pedis artery. The TP trunk is patent. The posterior tibial artery is patent to the level of the ankle joint and continues as the plantar artery. The peroneal artery is patent to the level of the ankle joint. Lungs: Imaged lung bases are clear of consolidation. Partially imaged cardiac leads. [id number] pericardial effusion. Liver: No arterially enhancing mass. Hepatic steatosis. Gallbladder and biliary ducts: No calcified stones. No ductal dilation. Pancreas: Unremarkable. Spleen: Unremarkable. Adrenal glands: No mass. Kidneys and ureters: New wedge like transcortical hypoenhancement of the left interpolar region and bilateral lower renal poles, suggestive of infarct. No hydronephrosis or evidence of a solid mass. Stomach and bowel: Unremarkable stomach. Nondistended bowel loops. Moderate colonic stool. No focal inflammatory change. Scattered colonic diverticula. Appendix: No evidence of appendicitis. Urinary bladder: Unremarkable as imaged. Reproductive: Unremarkable as imaged. Intraperitoneal space: No free fluid or free air. Lymph nodes: No pathologically enlarged lymph nodes Bones/joints: No acute fracture. Osseous degenerative changes. Bilateral moderate knee effusions. Soft tissues: Bilateral popliteal cysts measuring up to 7.2 cm on left and 5.1 cm on the right; partially calcified on the right. CT/CT angio abd aorta runof [id number] IMPRESSION: 1. Interval aortobiiliac graft repair of an abdominal aortic aneurysm now measuring 5.4 x 5.6 cm in axial dimensions. Serpiginous hyperenhancement within the sac likely reflecting a traversing vessel. A small blush of contrast in the posterior aspect of the aneurysm sac is most compatible with type II endoleak. 2. Three-vessel runoff to the bilateral lower extremities. 3. New wedge like transcortical hypoenhancement the left interpolar region and bilateral lower renal poles suggestive of interval renal infarcts. 4. Scattered atherosclerosis as above. 5. Moderate stool burden, correlate for constipation. 6. Bilateral popliteal cysts. 7. Bilateral moderate knee effusions. 8. [id number] pericardial effusion. 9. Additional chronic and incidental/ancillary findings as above.
[2024-12-20 10:10] LABS: Blood Urea Nitrogen 15 mg/dL (8-23)
[2024-12-20] MEDS: iohexol 350 mg/mL 500 mL Btl (per mL) IV (10:11)
== END 2024-12-20 09:12 | disposition home or self-care (01) ==
LOC: RAD 09:12
PROVIDERS: PCP Family Medicine; Visit Provider Internal Medicine Cardiovascular Disease
DX: I71.40 Abdominal aortic aneurysm, without rupture, unspecified (principal); I71.43 Infrarenal abdominal aortic aneurysm, without rupture; R90.82 White matter disease, unspecified; I97.89 Other postprocedural complications and disorders of the circulatory system, not elsewhere classified; I70.203 Unspecified atherosclerosis of native arteries of extremities, bilateral legs; N28.89 Other specified disorders of kidney and ureter; I25.10 Atherosclerotic heart disease of native coronary artery without angina pectoris; K59.00 Constipation, unspecified; M71.21 Synovial cyst of popliteal space [Baker], right knee; I71.22 Aneurysm of the aortic arch, without rupture; M25.462 Effusion, left knee; M25.461 Effusion, right knee; I31.39 Other pericardial effusion (noninflammatory); K76.0 Fatty (change of) liver, not elsewhere classified; R93.89 Abnormal findings on diagnostic imaging of other specified body structures
CPT/HCPCS: 75635; 82565; 84520

== ENCOUNTER 2025-01-09 07:24 | Outpatient (CLI) | payer MEDICARE, OTHER, SELFPAY ==
--- NOTE | 2025-01-09 07:45 | USCV_ITS ---
Kayley Rubén Age: 84 Gender: M : 1940 Exam Date: 01/09/2025 07:44 Ordering Phys: Khai Lizarraga MD ([email or web address]) Technologist: Karthik Mcgee Exam Location: [facility] – [place] Indication: cad BP: 130 / 80 HR: 61 Rhythm: Sinus Technical Quality: Adequate MEASUREMENTS (Male / Female) Normal Values 2D ECHO LV Diastolic Diameter PLAX 6.1 cm 4.2 - 5.9 / 3.9 - 5.3 cm IVS Diastolic Thickness 1.3 cm 0.6 - 1.0 / 0.6 - 0.9 cm IVS Systolic Thickness 2.2 cm LVPW Diastolic Thickness 1.5 cm 0.6 - 1.0 / 0.6 - 0.9 cm LVPW Systolic Thickness 1.9 cm LVOT Diameter 2.4 cm LV Ejection Fraction 2D Teich 63.8 % LV Ejection Fraction MOD 4C 66.2 % LV Ejection Fraction MOD 2C 63.6 % LV Ejection Fraction 2C AL 64.0 % LA Diameter 3.5 cm RA Systolic Volume 4C AL 86.5 ml RA Systolic Volume 4C MOD 84.7 ml Aorta at Sinotubular Diameter 3.4 cm IVC Diameter 1.8 cm M-MODE LA Ao Ratio MM 1.1 MV E Point Septal Separation 1.0 cm AV Cusp Separation MM 2.7 cm DOPPLER AV Peak Velocity 187.0 cm/s LVOT Peak Velocity 109.0 cm/s AV Area Cont Eq vti 2.6 cm squared AV Area Cont Eq pk 2.6 cm squared MV Area PHT 3.4 cm squared Mitral E to A Ratio 0.7 TR Peak Velocity 263.0 cm/s TR Peak Gradient 27.7 mmHg TV Peak E Velocity 101.0 cm/s PV Peak Velocity 117.0 cm/s FINDINGS Left Ventricle Normal left ventricular size, systolic function and wall thickness, with no regional wall motion abnormalities. Left ventricular ejection fraction is estimated at 60 %. Abnormal septal motion consistent with conduction abnormality. Grade I/IV diastolic dysfunction (abnormal relaxation filling pattern), normal to mildly elevated filling pressures. Right Ventricle Catheter/pacemaker wire visualized in the right ventricle. Normal right ventricular size. Right Atrium The right atrium is normal in size. Left Atrium The left atrium is normal in size. Mitral Valve Mildly thickened mitral valve. Mild mitral annular calcification. No mitral valve stenosis. Mild mitral valve regurgitation. Aortic Valve Mild aortic valve calcification. No aortic valve stenosis. Trace aortic valve regurgitation. Tricuspid Valve Trace to mild tricuspid valve regurgitation. Pulmonic Valve Structurally normal pulmonic valve without significant stenosis. There is no pulmonic regurgitation. Pericardium Trivial pericardial effusion. Aorta Normal ascending aorta dimension. IVC The inferior vena cava appears normal. CONCLUSIONS Normal left ventricular size, systolic function and wall thickness, with no regional wall motion abnormalities. Left ventricular ejection fraction is estimated at 60 %. Abnormal septal motion consistent with conduction abnormality. Grade I/IV diastolic dysfunction (abnormal relaxation filling pattern), normal to mildly elevated filling pressures. Catheter/pacemaker wire visualized in the right ventricle. Normal right ventricular size. Mildly thickened mitral valve. Mild mitral annular calcification. No mitral valve stenosis. Mild mitral valve regurgitation. Mild aortic valve calcification. No aortic valve stenosis. Trace aortic valve regurgitation. Trivial pericardial effusion. Right atrial pressure is around 5 mm of mercury. Khai Lizarraga MD (Electronically Signed) Final Date: 09 January 2025 10:35 S
== END 2025-01-09 07:25 | disposition home or self-care (01) ==
LOC: RAD 07:25
PROVIDERS: PCP Family Medicine; Visit Provider Internal Medicine Cardiovascular Disease
DX: I50.9 Heart failure, unspecified (principal); R06.02 Shortness of breath; I70.0 Atherosclerosis of aorta; I50.30 Unspecified diastolic (congestive) heart failure; I34.81 Nonrheumatic mitral (valve) annulus calcification; I34.0 Nonrheumatic mitral (valve) insufficiency; I35.1 Nonrheumatic aortic (valve) insufficiency; I36.1 Nonrheumatic tricuspid (valve) insufficiency; I31.39 Other pericardial effusion (noninflammatory)
CPT/HCPCS: 93306

== ENCOUNTER 2025-01-27 07:09 | Outpatient (RCR) | payer OTHER, SELFPAY | END 2025-01-31 23:59 | disposition home or self-care (01) | LOC: SPT 07:09 | PROVIDERS: Visit Provider Family Medicine | DX: R53.1 Weakness (principal) | CPT/HCPCS: 97110; 97161 ==

== ENCOUNTER 2025-02-01 05:00 | Outpatient (RCR) | payer OTHER, SELFPAY | END 2025-03-03 23:59 | disposition home or self-care (01) | LOC: SPT 05:00 | PROVIDERS: Visit Provider Family Medicine | DX: R53.1 Weakness (principal) | CPT/HCPCS: 97110 ==

== ENCOUNTER 2025-03-04 05:00 | Outpatient (RCR) | payer OTHER, SELFPAY | END 2025-04-02 23:59 | disposition home or self-care (01) | LOC: SPT 05:00 | PROVIDERS: PCP Family Medicine; Visit Provider Family Medicine | DX: R53.1 Weakness (principal) | CPT/HCPCS: 97110 ==

== ENCOUNTER → 2025-03-06 12:22 | Outpatient (BNVA) | payer MEDICARE, OTHER, SELFPAY | PROVIDERS: PCP Family Medicine; Visit Provider Internal Medicine Cardiovascular Disease | DX: I42.9 Cardiomyopathy, unspecified (principal); I10 Essential (primary) hypertension; I73.9 Peripheral vascular disease, unspecified; I71.40 Abdominal aortic aneurysm, without rupture, unspecified; Z98.890 Other specified postprocedural states; Z95.810 Presence of automatic (implantable) cardiac defibrillator; Z87.891 Personal history of nicotine dependence | CPT/HCPCS: 99214 ==

== ENCOUNTER → 2025-03-08 10:11 | Outpatient (BNVA) | payer MEDICARE, OTHER, SELFPAY | PROVIDERS: PCP Family Medicine; Visit Provider Internal Medicine Cardiovascular Disease | DX: Z45.02 Encounter for adjustment and management of automatic implantable cardiac defibrillator (principal) | CPT/HCPCS: 93296 ==